=== PATIENT | female | born 1990 | race Caucasian/White ===

== ENCOUNTER 2021-01-22 14:47 | Emergency (ER) | payer SELFPAY ==
[~2021-01-22] VITALS: Ht 167.6 cm; Wt 59.9 kg
[2021-01-22 15:01] VITALS: BP 127/81
[2021-01-22] MEDS ORDERED: ACETAMINOPHEN ES 500 MG TABLET PO ONE (15:30)
[2021-01-22] MEDS ORDERED: IV NS 0.9% 1,000 ML BAG IV ONE (15:30)
[2021-01-22] MEDS ORDERED: ACETAMINOPHEN ES 500 MG TABLET ONE (15:34)
[2021-01-22] MEDS ORDERED: CHLO25CA22 PO (15:55)
[2021-01-22] MEDS ORDERED: IBUP-1955 PO (15:55)
[2021-01-22] MEDS ORDERED: LORAZEPAM 1 MG TABLET ONE (16:12)
--- NOTE | 2021-01-22 16:22 | NUR ---
Patient discharged to home in stable condition. Written and verbal after care instructions given. Patient verbalizes understanding of instruction.
[2021-01-22] MEDS ORDERED: LORAZEPAM 1 MG TABLET PO ONE (16:30)
== END 2021-01-22 16:22 | disposition home or self-care (01) ==
LOC: ER 14:47
DX: F07.81 Postconcussional syndrome (principal); F10.239 Alcohol dependence with withdrawal, unspecified; R11.2 Nausea with vomiting, unspecified; Y90.9 Presence of alcohol in blood, level not specified; Z79.899 Other long term (current) drug therapy
CPT/HCPCS: 96360; 99283; J7030